=== PATIENT | male | born 1995 | race Caucasian/White ===

== ENCOUNTER 2022-07-16 04:48 | Emergency (ER) | payer BC, OTHER ==
[2022-07-16] MEDS ORDERED: Acetaminophen/HYDROcodone 325-10 MG Tab PO ONE (07:26)
[2022-07-16] MEDS ORDERED: Ketorolac 30 MG/ML SDV IM ONE (07:26)
== END 2022-07-16 08:04 | disposition home health service (06) ==
LOC: JD.ED 04:48
DX: K03.81 Cracked tooth (principal); Z79.899 Other long term (current) drug therapy
CPT/HCPCS: 96372; 99282; A9270; J1885